=== PATIENT | male | born 2000 | race Two or more races ===

== ENCOUNTER 2024-09-15 07:23 | Emergency (ER) | payer MEDICAID, OTHER ==
[~2024-09-15] VITALS: Ht 175.3 cm; Wt 122.5 kg
[2024-09-15 08:02] VITALS: BP 120/81; PULSE 111; RESP 18; TEMP 98.6; O2SAT 96
--- NOTE | 2024-09-15 08:31 | ED.PDOC ---
Musculoskeletal HPI Comments 24 year old male presents for shoulder pain after a fall x 4 days Reports he trip on a piece of wood. Landed on his right side and now complains of pain with abduction Denies fevers chills night sweats nausea vomiting redness around the shoulder Denies previous surgeries to the shoulder or significant injury Numbness/tingling down the arm Denies changes, shortness of breath Chief Complaint: Upper Extremity Time Seen by MD: 07:48 Primary Care Provider: NONE Reviewed Notes: Nurses Notes, Medications, Allergies Allergies: Coded Allergies: NO KNOWN ALLERGIES (Unverified , 09/15/24) Home Meds Active Scripts Ibuprofen Micronized (Ibuprofen) 800 Mg Tab, 800 MG PO TIDWM for 10 Days, #30 TAB 0 Refills Prov:ROBBIN PAIZ Laith KUHN 09/15/24 Information Source: Patient Mode of Arrival: Ambulatory Family History Family History: Reviewed,noncontributory to illness All Other Systems: Reviewed and Negative (Per HPI) Physical Exam General Appearance: No Apparent Distress, Normal HEENT: Head (Normocephalic atraumatic), Normal ENT Inspection, Pharynx Normal, TMs Normal Neck: Full Range of Motion, Non-Tender, Normal, Normal Inspection Respiratory: Chest Non-Tender, Lungs Clear, No Accessory Muscle Use, No Respiratory Distress, Normal Breath Sounds Cardiovascular: No Murmur, No Gallop, Regular Rate/Rhythm Breast Exam: Deferred Gastrointestinal: No Organomegaly, Non Tender, No Pulsatile Mass, Normal Bowel Sounds, Soft Genitalia: Deferred Pelvic: Deferred Rectal: Deferred Extremities: No calf tenderness, Normal capillary refill, Normal inspection, Normal range of motion, Non-tender, No pedal edema Musculoskeletal : Location: Right Extremity Location: Shoulder (No gross abnormality on inspection. No shoulder drop visible. No clavicular tenderness on palpation. Palpation tenderness to coracoid process and acromion process. No scapular, supraspinatus, infraspinatus tenderness to touch. Limited flexion passive movement due to pain. Pain with abduction. ) Apperance: Normal Neurologic: Alert, No Motor Deficits, Normal Affect, Normal Mood, No Sensory Deficits Cerebellar Function: Normal Reflexes: Normal Skin: Dry, Normal Color, Warm Lymphatic: No Adenopathy Was a procedure done? Was a procedure done?: No Differential Diagnosis EXT Differential Diagnosis: Fracture, Sprain, Dislocation X-Ray, Labs, Meds, VS Vital Signs Date Time Temp Pulse Resp B/P (MAP) Pulse Ox O2 Delivery O2 Flow Rate FiO2 09/15/24 08:02 111 18 96 Room Air 09/15/24 08:02 98.6 111 18 120/81 (94) 96 98.6 09/15/24 07:31 98.6 111 18 120/81 (94) 96 PATIENT: JENNIFER NOELVONACCT: [id number]: [id number] : 2000 LOC: ER ROOM / BED: / AGE / SEX: 24 / M ADM STATUS: REG ER SERVICE 9 ORDERING PHYSICIAN: ROBBIN PAIZ NP PROCEDURE(s): RSHD2 - R SHOULDER 2+ VIEW XRAY REASON: INJURY R/O FX ORDER NUMBER(s): [id number], ACCESSION NUMBER(s): [id number] CLINICAL INDICATION: INJURY R/O FX TECHNIQUE: XY R SHOULDER 2+ VIEW XRAY Comparison: None FINDINGS/IMPRESSION: Nondisplaced fracture involving the greater tuberosity. ATED BY: JACK MOSS MD DICTATED DATE/TIME: 09/15/24847 SIGNED BY: JACK MOSS MD SIGNED DATE/TIME: 09/15/24847 CC: X-Ray, Labs, Meds, VS Comment On reevaluation, patient had symptomatic improvement. Patient is stable for discharge at this time. External notes reviewed. Test results and diagnostic imaging interpreted. All diagnostic findings, discharge care, education and instructions provided Follow-up with PCP in 2 to 3 days. Needs ortho eval Patient verbalized understanding and agreed to treatment plan Vital signs stable, afebrile, no acute distress noted Patient ambulatory with strong steady gait Advised to return precautions for any new or worsening symptoms, return to ER immediately for re-evaluation Patient is aware that the purpose of this visit was for an acute medical emergency requiring emergent stabilization. Chronic conditions, including malignancies have not been ruled out. Patient is instructed to follow up with PCP as directed and discharge instructions for continued care and workup. If unable to arrange follow-up, patient is to return to the emergency department for reassessment. Patient (parent or legal guardian if applicable) was given verbal and written discharge instructions and acknowledges understanding. Time of 1ST Reevaluation: 09:00 Reevaluation 1ST: Improved Patient Education/Counseling: Diagnosis, Treatment Family Education/Counseling: Diagnosis, Treatment Departure 1 Departure Time of Disposition: 09:07 Impression: Primary Impression: Greater tuberosity of humerus fracture Qualified Codes: S42.254A - Nondisplaced fracture of greater tuberosity of right humerus, initial encounter for closed fracture Disposition: HOME / SELF CARE / HOMELESS Condition: Stable e-Prescriptions Ibuprofen Micronized (Ibuprofen) 800 Mg Tab 800 MG PO TIDWM for 10 Days, #30 TAB 0 Refills Prov: ROBBIN PAIZ NP 09/15/24 Discharged With: Self Critical Care Note Critical Care Time?: No Stability Stability form required: No Heart Score Heart Score: Heart Score Response (Comments) Value History N/A 0 EKG N/A 0 Age N/A 0 Risk Factors N/A 0 Troponin N/A 0 Total 0 ROBBIN PAIZ NP Sep 15, 2024 08:31
--- NOTE | 2024-09-15 08:50 | DVH ---
CLINICAL INDICATION: INJURY R/O FX TECHNIQUE: XY R SHOULDER 2+ VIEW XRAY Comparison: None FINDINGS/IMPRESSION: Nondisplaced fracture involving the greater tuberosity.
[2024-09-15] MEDS ORDERED: IBUP-1455 PO (09:07)
== END 2024-09-15 09:19 | disposition home or self-care (01) ==
LOC: ER 07:23
DX: S42.251A Displaced fracture of greater tuberosity of right humerus, initial encounter for closed fracture (principal); Z79.899 Other long term (current) drug therapy; W18.09XA Striking against other object with subsequent fall, initial encounter; Y93.89 Activity, other specified; Y92.89 Other specified places as the place of occurrence of the external cause; Y99.8 Other external cause status
CPT/HCPCS: 73030